=== PATIENT | female | born 1930 | race Asian ===

== ENCOUNTER 2017-05-19 11:14 | Inpatient (IN) | payer MEDICAID, OTHER ==
[~2017-05-19] VITALS: Ht 157.5 cm; Wt 58.1 kg
[2017-05-19] VITALS (8 sets, daily range): BP systolic 121–155; BP diastolic 59–104
[2017-05-19] MEDS ORDERED: ATOR10TA69 PO (11:23)
[2017-05-19] MEDS ORDERED: CLOP75TA33 PO (11:23)
[2017-05-19] MEDS ORDERED: DILT300C52 PO (11:23)
[2017-05-19] MEDS ORDERED: METO-385 PO (11:23)
[2017-05-19 11:53] LABS: BASOPHILS % 1.3 % (0.0-2.0); EOSINOPHILS % 4.2 % (0.0-5.0); HEMATOCRIT. 39.1 % (36.0-48.0); HEMOGLOBIN. 13.2 g/dL (12.0-16.0); LYMPHOCYTES % 19.6 % (20.0-50.0); MEAN CORPUSCULAR HEMOGLOBIN 30.5 pg (28.0-32.0); MEAN CORPUSCULAR VOLUME 90.5 fL (81.0-99.0); MEAN PLATELET VOLUME 8.7 fl (7.4-10.4); MONOCYTES % 9.8 % (2.0-8.0); NEUTROPHILS % 65.1 % (40.0-76.0); PLATELET 166 x1000/uL (130-400); RED BLOOD CELL COUNT 4.32 mill/uL (4.2-5.4); RED CELL DISTRIBUTION WIDTH 14.1 % (11.6-14.6)
[2017-05-19 12:01] LABS: INR 1.1
[2017-05-19 12:02] LABS: CARBON DIOXIDE 28 mEq/L (21-32); CHLORIDE 106 mEq/L (98-107)
[2017-05-19 12:08] LABS: TROPONIN I 0.03 ng/mL (0.00-0.04)
[2017-05-19] MEDS ORDERED: IOHEXOL-300 100 ML BOTTLE ONE (13:02)
[2017-05-19] MEDS ORDERED: LIDOCAINE HCL 1% 20ML VIAL (Pyxis) INJ ONE (13:03)
[2017-05-19] MEDS ORDERED: HEPARIN SODIUM 1,000 UNIT/1ML VIAL IV ONE (13:03)
[2017-05-19] MEDS ORDERED: MIDAZOLAM HCL 2 MG/2 ML VIAL ONE ×2 (13:04→13:35)
[2017-05-19] MEDS ORDERED: FENTANYL CITRATE/PF 50MCG/ML 2ML VIAL ONE (13:04)
[2017-05-19] MEDS ORDERED: ATROPINE SULFATE 0.1MG/ML 10ML DISP.SYRIN ONE (13:21)
[2017-05-19] MEDS ORDERED: ATROPINE SULFATE 1MG/10ML SYR IV PRN (14:00)
[2017-05-19] MEDS ORDERED: ACETAMINOPHEN 325MG TABLET PO PRN (14:00)
[2017-05-19] MEDS ORDERED: NITR0.4T SL (14:05)
[2017-05-19] MEDS ORDERED: MULT-647 PO (14:05)
[2017-05-19] MEDS ORDERED: DILT180C69 PO (14:05)
[2017-05-19] MEDS ORDERED: ASPI-1159 PO (14:05)
[2017-05-19] MEDS ORDERED: NICARDIPINE 100MCG/ML 10ML VIAL (CATH LAB) IV ONE (14:09)
[2017-05-19] MEDS ORDERED: METO50TA5 PO (14:09)
[2017-05-19] MEDS ORDERED: NITROGLYCERIN 50MCG/ML 10ML VIAL (CATH LAB) IV ONE (14:09)
[2017-05-19] MEDS ORDERED: ATORVASTATIN CALCIUM 10MG TABLET PO SCH (21:00)
[2017-05-19] MEDS: DILTIAZEM HCL 60MG TABLET PO SCH (22:00)
[2017-05-20] VITALS (7 sets, daily range): BP systolic 125–141; BP diastolic 59–83
[2017-05-20] MEDS: DILTIAZEM HCL 60MG TABLET PO SCH (06:40)
[2017-05-20 06:46] LABS: BASOPHILS % 0.8 % (0.0-2.0); EOSINOPHILS % 3.3 % (0.0-5.0); HEMATOCRIT. 39.2 % (36.0-48.0); HEMOGLOBIN. 13.2 g/dL (12.0-16.0); LYMPHOCYTES % 20.8 % (20.0-50.0); MEAN CORPUSCULAR HEMOGLOBIN 30.1 pg (28.0-32.0); MEAN CORPUSCULAR VOLUME 89.5 fL (81.0-99.0); MEAN PLATELET VOLUME 8.9 fl (7.4-10.4); MONOCYTES % 10.8 % (2.0-8.0); NEUTROPHILS % 64.3 % (40.0-76.0); PLATELET 171 x1000/uL (130-400); RED BLOOD CELL COUNT 4.39 mill/uL (4.2-5.4)
[2017-05-20 07:08] LABS: CARBON DIOXIDE 28 mEq/L (21-32); CHLORIDE 107 mEq/L (98-107); HDL CHOLESTEROL 73 mg/dL (40-59); LDL CHOLESTEROL 79 mg/dL (5-100); TROPONIN I 0.03 ng/mL (0.00-0.04)
[2017-05-20] MEDS ORDERED: CLOPIDOGREL 75MG TABLET PO SCH (09:00)
[2017-05-20] MEDS ORDERED: METOPROLOL TARTRATE 50MG TABLET PO SCH (09:00)
[2017-05-20] MEDS ORDERED: ASPIRIN 81MG EC TABLET PO SCH (09:00)
[2017-05-20] MEDS ORDERED: INFLUENZA VIRUS VACCINE 0.5ML SYR IM ONE (09:00)
[2017-05-20] MEDS ORDERED: PNEUMOCOCCAL 23-VAL P-SAC VAC 0.5 ML IM ONE (09:00)
[2017-05-20] MEDS ORDERED: MULTIVITAMINS,THER W-MINERALS TABLET PO SCH (09:00)
== END 2017-05-20 11:10 | disposition home or self-care (01) | DRG 192 ==
LOC: ER 12:36 → ORIP 12:38 → 3WST 14:32
PROC: 4A023N7 Measurement of Cardiac Sampling and Pressure, Left Heart, Percutaneous Approach (ICD-10-PCS; principal; 2017-05-19)
PROC: B2111ZZ Fluoroscopy of Multiple Coronary Arteries using Low Osmolar Contrast (ICD-10-PCS; 2017-05-19)
PROC: B2151ZZ Fluoroscopy of Left Heart using Low Osmolar Contrast (ICD-10-PCS; 2017-05-19)
DX: R07.9 Chest pain, unspecified (principal); E46 Unspecified protein-calorie malnutrition; I11.9 Hypertensive heart disease without heart failure; M41.9 Scoliosis, unspecified; E83.51 Hypocalcemia; E78.00 Pure hypercholesterolemia, unspecified; Z68.23 Body mass index [BMI] 23.0-23.9, adult; Z79.899 Other long term (current) drug therapy; Z98.41 Cataract extraction status, right eye; Z98.42 Cataract extraction status, left eye; Z98.891 History of uterine scar from previous surgery; Z82.49 Family history of ischemic heart disease and other diseases of the circulatory system
CPT/HCPCS: 36415; 71010; 80048; 80053; 80061; 83735; 83880; 84443; 84484; 85025; 85610; 90686; 90732; 93005; 93458; 99285; C1760; C1769; C1887; C1893; J0461; J1644; J2250; J3010; J3490; Q9967